=== PATIENT | male | born 1945 | race Caucasian/White ===

== ENCOUNTER 2017-10-26 17:34 | Emergency (ER) | payer MEDICARE, OTHER ==
[~2017-10-26] VITALS: Ht 190.5 cm; Wt 100.0 kg
[~2017-10-26 17:34] MED LIST: ANDROGEL1.62 %; LEVOTHYROXIN125 MCG PO; PRAVASTATIN SOD20 MG PO; TRICOR145 MG PO
[2017-10-26 18:16] LABS: HEMATOCRIT 43.8 % (39.0-50.0); HEMOGLOBIN 15.5 g/dl (14.0-18.0); IMMATURE GRANULOCYTES 1.3 % (0.0-1.0); MEAN CELL VOLUME 91.3 fL CALC (80.0-100.0); MEAN CORPUSCULAR HGB 32.3 pG CALC (26.0-32.0); MEAN CORPUSCULAR HGB CONC 35.4 g/L CALC (32.0-36.0); NEUT# 24.8 thou/uL (1.82-7.42); RED BLOOD COUNT 4.8 mill/uL (4.70-6.10); RED CELL DISTRI WIDTH 20.4 % (11.5-15.5)
[2017-10-26 18:29] LABS: ALBUMIN 4.4 g/dL (3.2-5.0); BILIRUBIN, TOTAL 1.7 mg/dL (0.0-1.4); CALCIUM 10.2 mg/dL (8.4-10.2); CREATININE 2.4 mg/dL (0.7-1.3)
[2017-10-26 18:44] LABS: INFLUENZA B NONE DETECTED (NONE DETECT)
[2017-10-26 18:46] LABS: INFLUENZA A POSITIVE (NONE DETECT)
[2017-10-26 19:56] LABS: URINE BLOOD DIPSTICK LARGE (NEGATIVE); URINE COLOR YELLOW; URINE GLUCOSE - DIPSTICK NEGATIVE (NEGATIVE); URINE KETONE NEGATIVE (NEGATIVE); URINE NITRITE - DIPSTICK NEGATIVE (Negative); URINE PROTEIN - DIPSTICK >=300 mg/dL (NEG-TRACE); URINE SPECIFIC GRAVITY >=1.030; URINE UROBILINOGEN - DIPSTICK 0.2 E.U./dL (0.2)
[2017-10-26 20:01] LABS: URINE BILIRUBIN - DIPSTICK SMALL (NEGATIVE); URINE LEUK ESTERASE SMALL (NEGATIVE)
[2017-10-26 20:02] LABS: URINE CLARITY CLOUDY
[2017-10-26 20:15] LABS: URINE RBC TNTC RBC/hpf (0-5)
[2017-10-26 20:16] LABS: URINE BACTERIA FEW hpf; URINE SQUAMOUS EPITHELIAL CELL FEW EPI/hpf (0-FEW)
[2017-10-26 21:02] VITALS: BP 97/52
== END 2017-10-26 21:03 | disposition short-term general hospital (02) ==
LOC: ED 17:34
PROVIDERS: Emergency Medicine
PROC: 0T9B70Z Drainage of Bladder with Drainage Device, Via Natural or Artificial Opening (ICD-10-PCS; principal; 2017-10-26)
DX: R55 Syncope and collapse (principal); J11.1 Influenza due to unidentified influenza virus with other respiratory manifestations; D72.829 Elevated white blood cell count, unspecified; I12.9 Hypertensive chronic kidney disease with stage 1 through stage 4 chronic kidney disease, or unspecified chronic kidney disease; N18.9 Chronic kidney disease, unspecified; R41.82 Altered mental status, unspecified; I69.354 Hemiplegia and hemiparesis following cerebral infarction affecting left non-dominant side; A41.9 Sepsis, unspecified organism; B96.20 Unspecified Escherichia coli [E. coli] as the cause of diseases classified elsewhere; R50.9 Fever, unspecified
CPT/HCPCS: J1956

== ENCOUNTER 2020-11-02 11:17 | Inpatient (IN) | payer MEDICARE, OTHER ==
[~2020-11-02] VITALS: Ht 190.5 cm; Wt 95.6 kg
[~2020-11-02 11:17] MED LIST changes: +EUTHYROX50 MCG PO; +FENOFIBRATE160 MG PO; -LEVOTHYROXIN125 MCG PO; -TRICOR145 MG PO
[2020-11-02 12:04] LABS: IMMATURE GRANULOCYTES 0.4 % (0.0-5.0); MEAN CELL VOLUME 85.9 fL CALC (80.0-100.0); MEAN CORPUSCULAR HGB 27.8 pG CALC (26.0-32.0); MEAN CORPUSCULAR HGB CONC 32.4 g/dL CAL (32.0-36.0); NEUT# 6.5 thou/uL (1.82-7.42); RED BLOOD COUNT 6.47 mill/uL (4.70-6.10); RED CELL DISTRI WIDTH 20.4 % (11.5-15.5)
[2020-11-02 12:19] LABS: ALBUMIN 4.7 g/dL (3.2-5.0); ANION GAP 22 (6-22 (CALC)); BILIRUBIN, TOTAL 1.2 mg/dL (0.0-1.4); BUN 32 mg/dL (8-23); BUN/CREATININE RATIO 16 (12-20 (CALC)); CARBON DIOXIDE 20 mmol/l (22-30); CHLORIDE 101 mmol/l (95-108); GFR 33 ML/MIN (>=60 (CALC)); GFR FOR AFR.AMER. 40 ML/MIN (>=60 (CALC)); POTASSIUM 4.3 mmol/l (3.5-5.1); SGOT/AST 39 u/l (19-48); SODIUM 139 mmol/l (137-146); TOTAL PROTEIN 8.2 g/dL (6.3-8.2)
[2020-11-02 12:22] LABS: ALKALINE PHOSPHATASE 77 u/l (38-126)
[2020-11-02 12:25] LABS: HEMATOCRIT 55.6 % (39.0-50.0)
[2020-11-02 14:04] LABS: ACT PARTIAL THROMBO TIME 27.7 SECONDS (20.0-32.5); INTERNATIONAL NORMALIZED RATIO 1.3 RATIO (0.7-1.3); PROTHROMBIN TIME 12.9 SECONDS (9.0-12.5)
[2020-11-02 14:33] LABS: URINE BLOOD DIPSTICK NEGATIVE (NEGATIVE); URINE COLOR YELLOW; URINE GLUCOSE - DIPSTICK >=1000 mg/dL (NEGATIVE); URINE KETONE 15 mg/dL (NEGATIVE); URINE LEUK ESTERASE NEGATIVE (NEGATIVE); URINE NITRITE - DIPSTICK NEGATIVE (Negative); URINE PH 5.5 (4.5-8.0); URINE PROTEIN - DIPSTICK TRACE mg/dL (NEG-TRACE); URINE SPECIFIC GRAVITY 1.015
[2020-11-02 14:38] LABS: URINE BILIRUBIN - DIPSTICK SMALL (NEGATIVE)
[2020-11-02] MEDS ORDERED: HYDROCORTISONE5 MG PO (14:42)
[2020-11-02] MEDS ORDERED: ROSUVASTATIN CA20 MG PO (14:42)
[2020-11-02] MEDS ORDERED: CALCIUM600 M1 PO (14:43)
[2020-11-02] MEDS ORDERED: MULTI VIT PO (14:43)
[2020-11-02] MEDS ORDERED: VITAMIN D1000 UNIT PO (14:44)
[2020-11-02] MEDS ORDERED: GLUCOSAMINE1500 MG PO (14:45)
[2020-11-02] MEDS ORDERED: ALLOPURINOL100 MG PO (14:47)
[2020-11-02] MEDS ORDERED: EQ OMEPRAZOLE20 MG PO (14:47)
[2020-11-02] MEDS ORDERED: NORVASC10 M1 PO (14:48)
[2020-11-02] MEDS ORDERED: CARVEDILOL3.125 MG PO (14:49)
[2020-11-02] MEDS ORDERED: ASPIRIN81 MG PO (14:49)
[2020-11-02] MEDS ORDERED: DICLOFENAC75 MG PO (14:50)
[2020-11-02 16:00] VITALS: BP 110/78
[2020-11-02 18:23] VITALS: BP 103/64
[2020-11-02 20:31] VITALS: BP 99/62
[2020-11-02 22:28] VITALS: BP 100/66
[2020-11-03] VITALS (14 sets, daily range): BP systolic 89–111; BP diastolic 57–68
[2020-11-03 06:00] LABS: IMMATURE GRANULOCYTES 0.2 % (0.0-5.0); MEAN CORPUSCULAR HGB 28.6 pG CALC (26.0-32.0); MEAN CORPUSCULAR HGB CONC 32.2 g/dL CAL (32.0-36.0); NEUT# 3.28 thou/uL (1.82-7.42); RED BLOOD COUNT 4.54 mill/uL (4.70-6.10); RED CELL DISTRI WIDTH 19.6 % (11.5-15.5)
[2020-11-03 06:03] LABS: HEMATOCRIT 40.4 % (39.0-50.0)
[2020-11-03 06:14] LABS: ALKALINE PHOSPHATASE 40 u/l (38-126); BUN 22 mg/dL (8-23); BUN/CREATININE RATIO 18 (12-20 (CALC)); CALCULATED LDLCHOLESTEROL 13 mg/dL (62-129 (CALC)); CARBON DIOXIDE 22 mmol/l (22-30); CHOLESTEROL HDL RATIO 3.3 (<4.4 (CALC)); CREATININE 1.2 mg/dL (0.7-1.3); GFR 59 ML/MIN (>=60 (CALC)); GFR FOR AFR.AMER. > 60 ML/MIN (>=60 (CALC)); HDL CHOLESTEROL 23 mg/dL (>=40); MAGNESIUM 1.7 mg/dL (1.6-2.3); SGOT/AST 23 u/l (19-48); SODIUM 143 mmol/l (137-146); TOTAL CHOLESTEROL 77 mg/dl (0-199); TOTAL TRIGLYCERIDES 199 mg/dl (30-149); VLDL CHOLESTROL 40 mg/dl (0-38 (CALC))
[2020-11-03 06:19] LABS: ALBUMIN 2.5 g/dL (3.2-5.0); ANION GAP 8 (6-22 (CALC)); BILIRUBIN, TOTAL 0.5 mg/dL (0.0-1.4); CHLORIDE 116 mmol/l (95-108); POTASSIUM 2.8 mmol/l (3.5-5.1); TOTAL PROTEIN 4.7 g/dL (6.3-8.2)
[2020-11-04 02:00] VITALS: BP 112/66
[2020-11-04 04:00] VITALS: BP 106/67
[2020-11-04 06:19] LABS: HEMATOCRIT 44.3 % (39.0-50.0); HEMOGLOBIN 13.9 g/dl (14.0-18.0); IMMATURE GRANULOCYTES 0.3 % (0.0-5.0); MEAN CELL VOLUME 87.2 fL CALC (80.0-100.0); MEAN CORPUSCULAR HGB 27.4 pG CALC (26.0-32.0); MEAN CORPUSCULAR HGB CONC 31.4 g/dL CAL (32.0-36.0); NEUT# 3.52 thou/uL (1.82-7.42); RED BLOOD COUNT 5.08 mill/uL (4.70-6.10); RED CELL DISTRI WIDTH 20.1 % (11.5-15.5)
[2020-11-04 06:26] LABS: ALKALINE PHOSPHATASE 43 u/l (38-126); ANION GAP 11 (6-22 (CALC)); BILIRUBIN, TOTAL 0.6 mg/dL (0.0-1.4); BUN 14 mg/dL (8-23); BUN/CREATININE RATIO 12 (12-20 (CALC)); CARBON DIOXIDE 22 mmol/l (22-30); CHLORIDE 113 mmol/l (95-108); CREATININE 1.2 mg/dL (0.7-1.3); GFR 59 ML/MIN (>=60 (CALC)); GFR FOR AFR.AMER. > 60 ML/MIN (>=60 (CALC)); SGOT/AST 25 u/l (19-48); SODIUM 142 mmol/l (137-146); TOTAL PROTEIN 5.3 g/dL (6.3-8.2)
[2020-11-04 06:30] LABS: POTASSIUM 3.5 mmol/l (3.5-5.1)
[2020-11-04 08:00] VITALS: BP 139/75
[2020-11-04 10:00] VITALS: BP 116/63
[2020-11-04] MEDS ORDERED: LEVEMIR100 UNIT/M SC (11:27)
[2020-11-04 12:00] VITALS: BP 114/71
[2020-11-04 14:00] VITALS: BP 106/64
== END 2020-11-04 15:22 | disposition home health service (06) | DRG 683 ==
LOC: ED 11:17 → ICU 13:59
PROVIDERS: Internal Medicine; Nurse Practitioner; Student in an Organized Health Care Education/Training Program; ADMIT Internal Medicine; ATTEND Internal Medicine
DX: N17.9 Acute kidney failure, unspecified (principal); I69.354 Hemiplegia and hemiparesis following cerebral infarction affecting left non-dominant side; E23.0 Hypopituitarism; E11.65 Type 2 diabetes mellitus with hyperglycemia; E86.0 Dehydration; E87.6 Hypokalemia; R29.810 Facial weakness; R53.1 Weakness; I12.9 Hypertensive chronic kidney disease with stage 1 through stage 4 chronic kidney disease, or unspecified chronic kidney disease; E11.22 Type 2 diabetes mellitus with diabetic chronic kidney disease; N18.9 Chronic kidney disease, unspecified; E03.9 Hypothyroidism, unspecified; M10.9 Gout, unspecified; I69.322 Dysarthria following cerebral infarction; N40.0 Benign prostatic hyperplasia without lower urinary tract symptoms; Z20.822 Contact with and (suspected) exposure to COVID-19; Z79.52 Long term (current) use of systemic steroids; Z79.82 Long term (current) use of aspirin; Z79.899 Other long term (current) drug therapy; Z88.0 Allergy status to penicillin

== ENCOUNTER 2021-12-09 06:28 | Observation (INO) | payer MEDICARE, OTHER ==
[~2021-12-09] VITALS: Ht 190.5 cm; Wt 106.0 kg
[~2021-12-09 06:28] MED LIST changes: +ALLOPURINOL100 MG PO; +ASPIRIN81 MG PO; +CALCIUM600 M1 PO; +CARVEDILOL3.125 MG PO; +DICLOFENAC75 MG PO; +EQ OMEPRAZOLE20 MG PO; +GLUCOSAMINE1500 MG PO; +HYDROCORTISONE5 MG PO; +LEVEMIR100 UNIT/M SC; +MULTI VIT PO; +NORVASC10 M1 PO; +ROSUVASTATIN CA20 MG PO; +VITAMIN D1000 UNIT PO
[2021-12-09 06:59] LABS: HEMATOCRIT 45.3 % (39.0-50.0); HEMOGLOBIN 14.4 g/dl (14.0-18.0); IMMATURE GRANULOCYTES 0.5 % (0.0-5.0); MEAN CELL VOLUME 86.8 fL CALC (80.0-100.0); MEAN CORPUSCULAR HGB 27.6 pG CALC (26.0-32.0); MEAN CORPUSCULAR HGB CONC 31.8 g/dL CAL (32.0-36.0); NEUT# 7.15 thou/uL (1.82-7.42); RED BLOOD COUNT 5.22 mill/uL (4.70-6.10); RED CELL DISTRI WIDTH 16.9 % (11.5-15.5)
--- NOTE | 2021-12-09 07:00 | NUR ---
ASSUMED CARE BY THIS RN
[2021-12-09 07:13] LABS: BILIRUBIN, TOTAL 0.8 mg/dL (0.0-1.4); CREATININE 1.9 mg/dL (0.7-1.3); MAGNESIUM 1.8 mg/dL (1.6-2.3); POTASSIUM 3.6 mmol/l (3.5-5.1)
[2021-12-09 07:16] LABS: ALBUMIN 4.1 g/dL (3.2-5.0); TOTAL PROTEIN 7.1 g/dL (6.3-8.2)
[2021-12-09 07:46] LABS: TSH, 3RD GENERATION 0.46 uIU/mL (0.47 - 4.68)
[2021-12-09 09:07] LABS: URINE BILIRUBIN - DIPSTICK NEGATIVE (NEGATIVE); URINE BLOOD DIPSTICK SMALL (NEGATIVE); URINE COLOR YELLOW; URINE GLUCOSE - DIPSTICK NEGATIVE (NEGATIVE); URINE KETONE NEGATIVE (NEGATIVE); URINE LEUK ESTERASE NEGATIVE (NEGATIVE); URINE PROTEIN - DIPSTICK 100 mg/dL (NEG-TRACE); URINE SPECIFIC GRAVITY >=1.030
[2021-12-09 09:10] LABS: URINE NITRITE - DIPSTICK NEGATIVE (Negative)
[2021-12-09 09:11] LABS: URINE RBC 0-2 RBC/hpf (0-5); URINE WBC 0-2 WBC/hpf (0-5)
--- NOTE | 2021-12-09 10:15 | NUR ---
BED BATH PROVIDED FOR PT, RICARDO AREA CLEANSED AND CLEAN BRIEF APPLIED, CLEAN CHUX PLACED UNDER PT. PT'S SKIN INTACT, NO OPEN AREAS OBSERVED. PT WITH LARGE MOLE ON LEFT MID BACK THAT IS CRACKED, ABOUT THE SIZE OF A DIME. PT ASKED THAT I BE CAREFUL AROUND THAT-HE IS UNSURE WHAT IT IS, BUT TENDER. PT NOTED TO HAVE DRIED BLOOD FROM LEFT NARE AND HE STATES NOSE BLEED OCCURRED AFTER NASAL SWAB PERFORMED. WARM BLANKET ROLLED AND PLACED BEHIND HEAD/NECK. PT GIVEN FRUIT AND COTTAGE CHEESE BREAKFAST. AT THE BEDSIDE. PT AWARE OF POC AND WAITING FOR BED IN MED/SURG. PT STABLE. WILL CONTINUE TO MONITOR.
--- NOTE | 2021-12-09 11:35 | NUR ---
DR BATISTA AT BEDSIDE
--- NOTE | 2021-12-09 12:55 | NUR ---
([id number]) PT RECEIVED 1 UNIT HUMALOG PER SS FOR BS OF 196. NS RUNNING PER ORDERS. MEAL TRAY PROVIDED AND SET UP. PT DENIES ANY FURTHER NEEDS AT THIS TIME. WILL CONTINUE TO MONITOR. PT'S AT THE BEDSIDE.
--- NOTE | 2021-12-09 14:10 | NUR ---
PT RECEIVED LEVOTHYROXINE PER ORDER AND ALSO PRN TYLENOL FOR RIGHT SHOULDER PAIN THAT HE RATES AT 6/10. PT'S VSS, SKIN PWD, BREATHING UNLABORED. PT AWARE OF CONTINUED WAIT TIME. PT'S LEFT AT THIS TIME AND TOOK ALL OF PT'S BELONGGINGS EXCEPT HIS GLASSES. PT WITH CALL LIGHT IN REACH. WILL CONTINUE TO MONITOR.
--- NOTE | 2021-12-09 14:55 | NUR ---
PT RESTING WITH EYES CLOSED, IV MAINTENANCE FLUIDS INFUSING PER ORDER. VSS. BREATHING EVEN AND UNLABORED. PT STABLE. WILL CONTINUE TO MONITOR.
--- NOTE | 2021-12-09 15:36 | NUR ---
PT REASSESSED, VSS, SLEEPING. CALL LIGHT IN REACH. WILL CONTINUE TO MONITOR.
--- NOTE | 2021-12-09 17:35 | NUR ---
MEAL TRAY TO PT AND SET UP. PT DENIES ANY OTHER NEEDS AT THIS TIME. NO INSULIN REQURED WITH MEAL, BS RESULT OF 138. WILL CONTINUE TO MONITOR.
--- NOTE | 2021-12-09 18:47 | NUR ---
SPOKE WITH PT'S VIA PHONE AND GAVE UPDATE ON PT'S CONDITION AND POC.
--- NOTE | 2021-12-09 18:50 | NUR ---
([id number]) PT ATE 80% OF MEAL, DENIES ANY NEEDS AT THIS TIME. WATCHING TV, GIVEN UPDATE ON PLAN FOR GOING TO MED/SURG IN A FEW HOURS. PT VERBALIZED UNDERSTANDING. PT'S VSS, SKIN PWD, BREATHING UNLABORED. PT STABLE, CALL LIGHT IN REACH. WILL CONTINUE TO MONITOR.
--- NOTE | 2021-12-09 19:55 | NUR ---
CALL PLACED TO MED/SURG TO GIVE REPORT, DERIK BAIRD IS UNAVAILABLE, WILL RETURN CALL.
--- NOTE | 2021-12-09 20:10 | NUR ---
CALL PLACED TO DERIK BAIRD MED/SURG, SBAR REPORT GIVEN
[2021-12-09 20:35] VITALS: BP 140/67
--- NOTE | 2021-12-09 20:35 | NUR ---
PATIENT MOVED UP TO [facility] TO ROOM 268 VIA STRETCHER. AMBULATED SELF TO BED WITH SUPERVISION. ALERT AND ORIENTED. ABLE TO MAKE NEEDS KNOWN. ORIENTED PATIENT TO ROOM. ASSESSMENT COMPLETE. VS STABLE. BSC PRESENT. NO COMPLAINTS OF PAIN OR DISCOMFORT AT THIS TIME. CALL LIGHT AND BELONGINGS WITHIN REACH.
--- NOTE | 2021-12-09 20:55 | NUR ---
(2038) PT TAKEN TO MED/SURG ROOM 268 VIA STRETCHER WITH TELE IN PLACE. PT'S PAPERWORK HANDED OFF TO DERIK BAIRD. PT ASSISTED INTO BED AND IV FLUIDS RESUMED AT 100ML/HR VIA PUMP WITH 250ML OF 1000ML REMAINING. PT IN STABLE CONDITION AT TIME OF ADMISSION.
[2021-12-09 23:48] VITALS: BP 138/68
--- NOTE | 2021-12-10 00:25 | NUR ---
PATIENT SITTING UP IN BED WATCHING TV. NO COMPLAINTS VOICED AT THIS TIME. NO SIGNS OF DISTRESS NOTED. CALL LIGHT AND BELONGINGS REMAIN IN REACH.
[2021-12-10 04:42] VITALS: BP 143/78
--- NOTE | 2021-12-10 05:00 | NUR ---
PATIENT RESTING IN BED QUIETLY. NO COMPLAINTS VOICED AT THIS TIME. NO SIGNS OF DISTRESS. CALL LIGHT AND BELONGINGS REMAIN IN REACH.
--- NOTE | 2021-12-10 05:35 | NUR ---
EMPTIED PATIENTS URINAL AND GAVE HIM WATER BOTTLES PER REQUEST.
[2021-12-10 05:59] LABS: HEMATOCRIT 41.5 % (39.0-50.0); HEMOGLOBIN 13.2 g/dl (14.0-18.0); IMMATURE GRANULOCYTES 0.4 % (0.0-5.0); MEAN CELL VOLUME 88.7 fL CALC (80.0-100.0); MEAN CORPUSCULAR HGB 28.2 pG CALC (26.0-32.0); MEAN CORPUSCULAR HGB CONC 31.8 g/dL CAL (32.0-36.0); NEUT# 5.85 thou/uL (1.82-7.42); RED BLOOD COUNT 4.68 mill/uL (4.70-6.10); RED CELL DISTRI WIDTH 17.8 % (11.5-15.5)
[2021-12-10 06:18] LABS: ALBUMIN 3.5 g/dL (3.2-5.0); BILIRUBIN, TOTAL 0.5 mg/dL (0.0-1.4); C-REACTIVE PROTEIN 5.3 mg/dL (0-0.9); CREATININE 1.4 mg/dL (0.7-1.3); MAGNESIUM 1.9 mg/dL (1.6-2.3); POTASSIUM 3.7 mmol/l (3.5-5.1); TOTAL PROTEIN 6.2 g/dL (6.3-8.2)
[2021-12-10 07:15] VITALS: BP 140/70
--- NOTE | 2021-12-10 07:15 | NUR ---
PATIENT LAYING IN BED AT THIS TIME. CENTRIFUGAL SPINNER DONE SEE INTERVENTIONS. PATIENT DEINES ANY SHORTNESS OF BREATH AT THIS TIME AND SPO2 IS 97% ON ROOM AIR. PATIENT DENIES ANY PAIN BUT DOES STATE THAT HIS RIGHT SHOULDER IS "SORE" DUE TO HIS FALLING AT HOME. TELE MONITOR IN PLACE AND BEING MONITORED BY ED. SIDERAILS ARE UP CALL LIGHT IS WITHIN REACH.
--- NOTE | 2021-12-10 07:37 | NUR ---
Patient is screened for PT and OT intervention and consults are indicated if medical agrees
[2021-12-10 10:34] VITALS: BP 141/77
--- NOTE | 2021-12-10 11:53 | NUR ---
PATIENT RESTING IN BED AT THIS TIME DENEIS ANY NEEDS AT THIS TIME TELE MONITOR IN PLACE CALL LIGHT WITHIN REACH. WILL CONTINUE TO MONITOR.
[2021-12-10 16:05] VITALS: BP 151/75
--- NOTE | 2021-12-10 16:23 | NUR ---
PATIENT RESTING IN BED AT THIS TIME DENIES ANY NEED SIDERAILS UP CALL LIGHT WIHTIN REACH. TELE MONITOR REMAINS IN PLACE BEING MONITORED BY ED.
[2021-12-10 16:30] VITALS: BP 142/68
[2021-12-10 19:00] VITALS: BP 139/76
--- NOTE | 2021-12-10 20:00 | NUR ---
PT IN BED WATCHING TV. EVEN AND UNLABORED RESPIRATIONS; CLEAR LUNG AGUILAR UPON AUSCULTATION. NON PRODUCTIVE COUGH PRESENT. TELEMETRY IN PLACE. ACTIVE BOWEL SOUNDS X4 QUADRANTS. IV SITE HEALTHY AND PATENT. SAFETY PRECAUTIONS IN PLACE. CALL LIGHT WITHIN REACH.
--- NOTE | 2021-12-10 23:30 | NUR ---
PT IN BED. PT C/O PAIN ON RIGHT SHOULDER AND BACK OF NECK 05/05. PT MEDICATED; WILL REASSESS. CALL LIGHT WITHIN REACH.
[2021-12-11] VITALS: BP 143/79
--- NOTE | 2021-12-11 00:20 | NUR ---
PT IN BED; STATES HIS PAIN IS BETTER 3/10. PT HELPED WITH PERICARE. NO DISTRESS NOTED. TELEMETRY IN PLACE. SAFETY PRECAUTIONS IN PLACE. CALL LIGHT WITHIN REACH.
[2021-12-11 04:00] VITALS: BP 159/77
--- NOTE | 2021-12-11 05:20 | NUR ---
PT C/O PAIN ON RIGHT SHOULDER AND BACK OF NECK 05/05; PT MEDICATED; WILL REASSES. PT REQUESTED FRESH WATER AND A BLANKET. TELEMETRY AND SAFETY PRECAUTIONS IN PLACE. CALL LIGHT WITHIN REACH.
[2021-12-11 06:14] LABS: HEMATOCRIT 39.8 % (39.0-50.0); HEMOGLOBIN 13.5 g/dl (14.0-18.0); MEAN CELL VOLUME 89.4 fL CALC (80.0-100.0); MEAN CORPUSCULAR HGB 30.3 pG CALC (26.0-32.0); MEAN CORPUSCULAR HGB CONC 33.9 g/dL CAL (32.0-36.0); RED BLOOD COUNT 4.45 mill/uL (4.70-6.10); RED CELL DISTRI WIDTH 19.5 % (11.5-15.5)
[2021-12-11 06:44] LABS: CREATININE 1.5 mg/dL (0.7-1.3); MAGNESIUM 1.8 mg/dL (1.6-2.3); POTASSIUM 3.5 mmol/l (3.5-5.1)
[2021-12-11 07:15] VITALS: BP 148/77
--- NOTE | 2021-12-11 07:15 | NUR ---
PATIENT LAYING IN BED AT THIS TIME. DIESEL TRUCK MECHANIC DONE SEE INTERVENTIONS PATIENT REMAINS ON ROOM AIR AND SPO2 IS 96% TELE MONITOR ON AND BEING MONITORED BY ED. PATIENT ALERT AND ORIENTED AND DENIES ANY PAIN. SIDERAILS ARE UP CALL LIGHT IS WIHTIN REACH.
[2021-12-11] MEDS ORDERED: LEVOTHYROXIN100 MCG PO (11:00)
[2021-12-11] MEDS ORDERED: ULTRAM50 M1 PO (11:01)
[2021-12-11 11:21] VITALS: BP 152/80
--- NOTE | 2021-12-11 11:40 | NUR ---
PATIENT D/C AT THIS TIME. D/C INSTRUCTIONS GONE OVER WITH VIA PHONE AND WITH PATIENT AT BEDSIDE. PATIENT AND INFORMED THAT [facility] WILL CONTACT THEM AND ARRANGE TIME WHEN THEY WILL BE COMING TO VISIT. IV REMOVED AT THIS TIME. ED CALLED SPOKE TO SCOTTY AND INFORMED PATIENT BEING REMOVED FROM TELE DUE TO D/C STATUS.
--- NOTE | 2021-12-11 11:57 | NUR ---
Discharge instructions given. Patient verbalizes understanding of same. Discharged in stable condition via Wheelchair to Home with spouse. All belongings sent with pt. PATIENT LEFT WITH HOME CARE TO FOLLOW
--- NOTE | 2021-12-11 12:02 | NUR ---
S- Pt stated he may be going home today. 0-Pt seen this am for treatment. He was resting in bed. Pt bed mobility with SBA, sit to and from stand with CGA. Ambulation x 20' in room with RW required CGA. Pt performed 2 x 10 reps of LEs in sitting. Transfers bed to commode, commode to chair with CGA. BP 152/80, HR 84 02 92%. Time spent with pt 40 min A- Pt continued to be weak. [facility] E[facility] P- Will follow per POC and progress as tolerated.
== END 2021-12-11 11:57 | disposition home health service (06) ==
LOC: ED 06:28 → ED-I 09:23 → ED 19:01 → MS2 19:02
PROVIDERS: Family Medicine; Nurse Practitioner; ADMIT Internal Medicine; ATTEND Internal Medicine
DX: U07.1 COVID-19 (principal); R53.1 Weakness; N17.9 Acute kidney failure, unspecified; M62.82 Rhabdomyolysis; M25.511 Pain in right shoulder; I12.9 Hypertensive chronic kidney disease with stage 1 through stage 4 chronic kidney disease, or unspecified chronic kidney disease; E11.22 Type 2 diabetes mellitus with diabetic chronic kidney disease; N18.9 Chronic kidney disease, unspecified; E03.9 Hypothyroidism, unspecified; E23.0 Hypopituitarism; M10.9 Gout, unspecified; Z79.4 Long term (current) use of insulin; Z86.73 Personal history of transient ischemic attack (TIA), and cerebral infarction without residual deficits; Z91.81 History of falling
CPT/HCPCS: J1650

== ENCOUNTER 2022-11-01 01:13 | Emergency (ER) | payer MEDICARE, OTHER ==
[~2022-11-01] VITALS: Ht 190.5 cm; Wt 106.0 kg
[2022-11-01] VITALS (9 sets, daily range): BP systolic 112–136; BP diastolic 68–77
[~2022-11-01 01:13] MED LIST changes: +LEVOTHYROXIN100 MCG PO; +ULTRAM50 M1 PO
[2022-11-01 02:07] LABS: BASO% 0.7 % (0-3); EOS% 2.5 % (0-8); HEMATOCRIT 44.9 % (39.0-50.0); HEMOGLOBIN 15.3 g/dl (14.0-18.0); IMMATURE GRANULOCYTES 0.8 % (0.0-5.0); MEAN CELL VOLUME 88.6 fL CALC (80.0-100.0); MEAN CORPUSCULAR HGB 30.2 pG CALC (26.0-32.0); MEAN CORPUSCULAR HGB CONC 34.1 g/dL CAL (32.0-36.0); MONO% 8.6 % (2-13); NEUT# 5.88 thou/uL (1.82-7.42); NEUT% 67.4 % (42-76); RED BLOOD COUNT 5.07 mill/uL (4.70-6.10); RED CELL DISTRI WIDTH 14.4 % (11.5-15.5)
[2022-11-01 02:11] LABS: AMYLASE 75 u/l (30-110); ANION GAP 17 (6-22 (CALC)); BUN 24 mg/dL (8-23); BUN/CREATININE RATIO 14 (12-20 (CALC)); CARBON DIOXIDE 23 mmol/l (22-30); CHLORIDE 103 mmol/l (95-108); CREATININE 1.7 mg/dL (0.7-1.3); GFR FOR AFR.AMER. 48 ML/MIN (>=60 (CALC)); GFR OTHER RACES 39 ML/MIN (>=60 (CALC)); LIPASE 221 u/l (23-300); POTASSIUM 3.6 mmol/l (3.5-5.1); SGOT/AST 58 u/l (19-48); SODIUM 139 mmol/l (137-146)
[2022-11-01 02:21] LABS: ALKALINE PHOSPHATASE 59 u/l (38-126); BILIRUBIN, TOTAL 0.8 mg/dL (0.0-1.4); TOTAL PROTEIN 8.1 g/dL (6.3-8.2)
[2022-11-01 03:33] LABS: URINE BILIRUBIN - DIPSTICK NEGATIVE (NEGATIVE); URINE BLOOD DIPSTICK TRACE-INTACT (NEGATIVE); URINE COLOR YELLOW; URINE GLUCOSE - DIPSTICK NEGATIVE (NEGATIVE); URINE KETONE TRACE mg/dL (NEGATIVE); URINE LEUK ESTERASE NEGATIVE (NEGATIVE); URINE PH 5.5 (4.5-8.0); URINE PROTEIN - DIPSTICK TRACE mg/dL (NEG-TRACE); URINE SPECIFIC GRAVITY >=1.030; URINE UROBILINOGEN - DIPSTICK 0.2 E.U./dL (0.2)
[2022-11-01 03:36] LABS: URINE NITRITE - DIPSTICK NEGATIVE (Negative)
[2022-11-01] MEDS ORDERED: ROBITUSSIN AC10 ML PO (05:26)
== END 2022-11-01 06:10 | disposition home or self-care (01) ==
LOC: ED 01:13 → ED-I 03:33 → ED 06:10
PROVIDERS: Emergency Medicine
DX: A41.9 Sepsis, unspecified organism (principal); J06.9 Acute upper respiratory infection, unspecified; E86.0 Dehydration; E11.9 Type 2 diabetes mellitus without complications; I10 Essential (primary) hypertension; M10.9 Gout, unspecified; Z79.4 Long term (current) use of insulin; Z86.73 Personal history of transient ischemic attack (TIA), and cerebral infarction without residual deficits; Z20.822 Contact with and (suspected) exposure to COVID-19
CPT/HCPCS: S0073

== ENCOUNTER 2022-11-01 08:32 | Observation (INO) | payer MEDICARE, OTHER ==
[~2022-11-01] VITALS: Ht 182.9 cm; Wt 107.0 kg
[~2022-11-01 08:32] MED LIST changes: +ROBITUSSIN AC10 ML PO
[2022-11-01 09:29] LABS: BASO% 1.2 % (0-3); EOS% 2.4 % (0-8); IMMATURE GRANULOCYTES 0.2 % (0.0-5.0); LYMPH% 19.9 % (15-41); MEAN CORPUSCULAR HGB 30.3 pG CALC (26.0-32.0); MEAN CORPUSCULAR HGB CONC 34.4 g/dL CAL (32.0-36.0); MONO% 8.1 % (2-13); NEUT# 5.87 thou/uL (1.82-7.42); NEUT% 68.2 % (42-76); RED BLOOD COUNT 4.33 mill/uL (4.70-6.10); RED CELL DISTRI WIDTH 14.7 % (11.5-15.5)
[2022-11-01 09:30] LABS: HEMATOCRIT 38.1 % (39.0-50.0); HEMOGLOBIN 13.1 g/dl (14.0-18.0)
[2022-11-01 09:45] LABS: BILIRUBIN, TOTAL 0.5 mg/dL (0.0-1.4); CREATININE 1.4 mg/dL (0.7-1.3); POTASSIUM 3.6 mmol/l (3.5-5.1); TOTAL PROTEIN 6.5 g/dL (6.3-8.2)
[2022-11-01 09:51] LABS: URINE BILIRUBIN - DIPSTICK NEGATIVE (NEGATIVE); URINE BLOOD DIPSTICK NEGATIVE (NEGATIVE); URINE COLOR YELLOW; URINE GLUCOSE - DIPSTICK NEGATIVE (NEGATIVE); URINE KETONE NEGATIVE (NEGATIVE); URINE LEUK ESTERASE NEGATIVE (NEGATIVE); URINE PROTEIN - DIPSTICK NEGATIVE (NEG-TRACE); URINE UROBILINOGEN - DIPSTICK 0.2 E.U./dL (0.2)
[2022-11-01 09:52] LABS: URINE NITRITE - DIPSTICK NEGATIVE (Negative)
[2022-11-01 15:33] VITALS: BP 129/69
[2022-11-01 15:38] VITALS: BP 129/69
[2022-11-01 19:29] VITALS: BP 137/71
[2022-11-01 23:31] VITALS: BP 137/75
[2022-11-02 03:55] VITALS: BP 140/90
[2022-11-02 04:00] VITALS: BP 140/90
[2022-11-02 07:02] LABS: ALBUMIN 3.7 g/dL (3.2-5.0); ALKALINE PHOSPHATASE 49 u/l (38-126); ANION GAP 12 (6-22 (CALC)); BUN 14 mg/dL (8-23); BUN/CREATININE RATIO 12 (12-20 (CALC)); CARBON DIOXIDE 23 mmol/l (22-30); CHLORIDE 106 mmol/l (95-108); CREATININE 1.2 mg/dL (0.7-1.3); GFR FOR AFR.AMER. > 60 ML/MIN (>=60 (CALC)); GFR OTHER RACES 59 ML/MIN (>=60 (CALC)); MAGNESIUM 1.7 mg/dL (1.6-2.3); POTASSIUM 3.9 mmol/l (3.5-5.1); SGOT/AST 81 u/l (19-48); SODIUM 137 mmol/l (137-146)
[2022-11-02 10:12] VITALS: BP 139/77
[2022-11-02 10:44] VITALS: BP 117/69
[2022-11-02 18:53] VITALS: BP 107/64
[2022-11-02 23:56] VITALS: BP 135/77
[2022-11-03 03:57] VITALS: BP 140/75
[2022-11-03 07:12] VITALS: BP 135/75
[2022-11-03 11:56] VITALS: BP 138/76
[2022-11-03 13:24] LABS: BASO% 0.6 % (0-3); EOS% 4.5 % (0-8); HEMATOCRIT 38.8 % (39.0-50.0); HEMOGLOBIN 13.2 g/dl (14.0-18.0); IMMATURE GRANULOCYTES 0.2 % (0.0-5.0); LYMPH% 18.1 % (15-41); MEAN CELL VOLUME 89.6 fL CALC (80.0-100.0); MEAN CORPUSCULAR HGB 30.5 pG CALC (26.0-32.0); MONO% 8.1 % (2-13); NEUT# 4.31 thou/uL (1.82-7.42); NEUT% 68.5 % (42-76); RED BLOOD COUNT 4.33 mill/uL (4.70-6.10); RED CELL DISTRI WIDTH 14.5 % (11.5-15.5)
[2022-11-03 13:31] LABS: ALBUMIN 4.1 g/dL (3.2-5.0); ALKALINE PHOSPHATASE 50 u/l (38-126); ANION GAP 12 (6-22 (CALC)); BUN 12 mg/dL (8-23); BUN/CREATININE RATIO 11 (12-20 (CALC)); CARBON DIOXIDE 22 mmol/l (22-30); CHLORIDE 108 mmol/l (95-108); CREATININE 1.2 mg/dL (0.7-1.3); GFR FOR AFR.AMER. > 60 ML/MIN (>=60 (CALC)); GFR OTHER RACES 59 ML/MIN (>=60 (CALC)); POTASSIUM 4.1 mmol/l (3.5-5.1); SGOT/AST 64 u/l (19-48); SODIUM 137 mmol/l (137-146); TOTAL PROTEIN 6.7 g/dL (6.3-8.2)
[2022-11-03 13:33] LABS: BILIRUBIN, TOTAL 0.5 mg/dL (0.0-1.4)
[2022-11-03 15:14] VITALS: BP 117/73
[2022-11-03 18:53] VITALS: BP 132/69
[2022-11-04 00:37] VITALS: BP 143/78
[2022-11-04 04:44] VITALS: BP 150/79
[2022-11-04 06:04] LABS: EOS% 7.6 % (0-8); HEMATOCRIT 38.8 % (39.0-50.0); HEMOGLOBIN 13.4 g/dl (14.0-18.0); IMMATURE GRANULOCYTES 0.4 % (0.0-5.0); LYMPH% 31.9 % (15-41); MEAN CORPUSCULAR HGB 30.7 pG CALC (26.0-32.0); MEAN CORPUSCULAR HGB CONC 34.5 g/dL CAL (32.0-36.0); MONO% 8.6 % (2-13); NEUT# 2.47 thou/uL (1.82-7.42); NEUT% 50.5 % (42-76); RED BLOOD COUNT 4.36 mill/uL (4.70-6.10); RED CELL DISTRI WIDTH 14.4 % (11.5-15.5)
[2022-11-04 06:22] VITALS: BP 135/71
[2022-11-04 06:48] LABS: ALKALINE PHOSPHATASE 53 u/l (38-126); ANION GAP 12 (6-22 (CALC)); BILIRUBIN, TOTAL 0.5 mg/dL (0.0-1.4); BUN 12 mg/dL (8-23); BUN/CREATININE RATIO 11 (12-20 (CALC)); CARBON DIOXIDE 24 mmol/l (22-30); CHLORIDE 107 mmol/l (95-108); CREATININE 1.1 mg/dL (0.7-1.3); GFR FOR AFR.AMER. > 60 ML/MIN (>=60 (CALC)); GFR OTHER RACES > 60 ML/MIN (>=60 (CALC)); POTASSIUM 4.1 mmol/l (3.5-5.1); SGOT/AST 56 u/l (19-48); SODIUM 139 mmol/l (137-146); TOTAL PROTEIN 6.7 g/dL (6.3-8.2)
[2022-11-04 10:11] VITALS: BP 129/69
[2022-11-04] MEDS ORDERED: VIBRAMYCIN100 M2 PO (14:32)
[2022-11-04 14:41] VITALS: BP 125/63
[2022-11-04 15:25] VITALS: BP 125/63
== END 2022-11-04 16:05 | disposition home health service (06) ==
LOC: ED 08:32 → ED-I 10:15 → ED 12:13 → MS2 12:14
PROVIDERS: Family Medicine; Internal Medicine; ADMIT Internal Medicine; ATTEND Internal Medicine
DX: R62.7 Adult failure to thrive (principal); R53.1 Weakness; E86.0 Dehydration; M62.82 Rhabdomyolysis; N17.9 Acute kidney failure, unspecified; I12.9 Hypertensive chronic kidney disease with stage 1 through stage 4 chronic kidney disease, or unspecified chronic kidney disease; E11.22 Type 2 diabetes mellitus with diabetic chronic kidney disease; N18.9 Chronic kidney disease, unspecified; E23.0 Hypopituitarism; M10.9 Gout, unspecified; Z86.73 Personal history of transient ischemic attack (TIA), and cerebral infarction without residual deficits; Z91.81 History of falling; Z79.4 Long term (current) use of insulin; Z20.822 Contact with and (suspected) exposure to COVID-19; A41.9 Sepsis, unspecified organism; J06.9 Acute upper respiratory infection, unspecified; E11.9 Type 2 diabetes mellitus without complications; I10 Essential (primary) hypertension
CPT/HCPCS: J1650; S0073

== ENCOUNTER 2022-12-02 12:06 | Observation (INO) | payer MEDICARE, OTHER ==
[~2022-12-02] VITALS: Ht 193 cm; Wt 97.0 kg
[2022-12-02] VITALS (32 sets, daily range): BP systolic 96–129; BP diastolic 58–76
[~2022-12-02 12:06] MED LIST changes: +VIBRAMYCIN100 M2 PO
--- NOTE | 2022-12-02 12:06 | NUR ---
PATIENT TO ROOM 1 VIA EMS BEDSIDE TRIAGE COMPELTED
[2022-12-02 13:15] LABS: BASO% 0.4 % (0-3); EOS% 1.3 % (0-8); HEMATOCRIT 43.8 % (39.0-50.0); HEMOGLOBIN 14.6 g/dl (14.0-18.0); IMMATURE GRANULOCYTES 0.2 % (0.0-5.0); LYMPH% 19.9 % (15-41); MEAN CELL VOLUME 88.7 fL CALC (80.0-100.0); MEAN CORPUSCULAR HGB 29.6 pG CALC (26.0-32.0); MEAN CORPUSCULAR HGB CONC 33.3 g/dL CAL (32.0-36.0); MONO% 8.8 % (2-13); NEUT# 6.9 thou/uL (1.82-7.42); NEUT% 69.4 % (42-76); RED BLOOD COUNT 4.94 mill/uL (4.70-6.10); RED CELL DISTRI WIDTH 13.9 % (11.5-15.5)
[2022-12-02 13:29] LABS: ALBUMIN 4.6 g/dL (3.2-5.0); CREATININE 1.5 mg/dL (0.7-1.3); POTASSIUM 3.4 mmol/l (3.5-5.1); TOTAL PROTEIN 7.7 g/dL (6.3-8.2)
[2022-12-02 13:31] LABS: BILIRUBIN, TOTAL 1.1 mg/dL (0.2-1.3)
[2022-12-02] MEDS ORDERED: METFORMIN HCL500 M1 PO (14:06)
[2022-12-02] MEDS ORDERED: JARDIANCE25 MG PO (14:06)
[2022-12-02] MEDS ORDERED: LEVOTHYROXIN125 MCG PO (14:06)
[2022-12-02] MEDS ORDERED: AMLODIPINE BESYL5 MG PO (14:07)
[2022-12-02 16:20] LABS: URINE BLOOD DIPSTICK NEGATIVE (NEGATIVE); URINE COLOR YELLOW; URINE GLUCOSE - DIPSTICK >=1000 mg/dL (NEGATIVE); URINE KETONE TRACE mg/dL (NEGATIVE); URINE LEUK ESTERASE NEGATIVE (NEGATIVE); URINE PH 5.5 (4.5-8.0); URINE PROTEIN - DIPSTICK 30 mg/dL (NEG-TRACE); URINE SPECIFIC GRAVITY >=1.030; URINE UROBILINOGEN - DIPSTICK 0.2 E.U./dL (0.2)
[2022-12-02 16:26] LABS: URINE BILIRUBIN - DIPSTICK SMALL (NEGATIVE); URINE NITRITE - DIPSTICK NEGATIVE (Negative); URINE RBC 0-2 RBC/hpf (0-5); URINE WBC 0-2 WBC/hpf (0-5)
--- NOTE | 2022-12-02 18:41 | NUR ---
PT HAS BEEN MEIDCATED PER ORDER PT SPOUSE HAS BEEN UPDATED. PT AWARE OF ADMIT.
--- NOTE | 2022-12-02 19:20 | NUR ---
PT RESTING. NAD. IV ANTIBIOTICS INFUSING. VSS. AWAITING BED ASSIGNMENT
--- NOTE | 2022-12-02 20:00 | NUR ---
REPORT CALLED TO
--- NOTE | 2022-12-02 20:30 | NUR ---
TO FLOOR VIA [employer] MIXER ON MONITOR PACK. BELONGINGS LIST COMPLETED.
--- NOTE | 2022-12-02 21:16 | NUR ---
pt had a glucose of 161 @2049. nurse arnulfo notified @2054.
--- NOTE | 2022-12-02 22:00 | NUR ---
PATIENT ADMITTED FROM ER VIA STRETCHER WITH ER STAFF IN ATTENDANCE. PATIENT ASSIST TO THE BED-UNSTEADY ON HIS FEET AND STATES THAT HE HAS HAD RECENT FALLS. PATIENT REPOSITIONED IN BED. AWAKE ALERT AND ORIENTEDX3. PATIENT ADMITTED FOR PNEUMONIA AND JOVI. 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 PATIENT AMB WITH WALKER OR QUAD CANE AT HOME. WET BREIF REMOVED. STATES THAT HE WEARS THEM AT HOME FOR URINE INCONT. STATES THAT HIS LAST BM WAS SAT 2/4. IV SITE TO LEFT UPPER FOREARM INTACT AND HEALTHY WITH NS PATENT AND INFUSING AT 100CC/HR. TELE MONITOR IN PLACE. ORIENTED PATIENT TO ROOM AND SURROUNDINGS. INSTRUCTED ON USE OF NURSE CALL LIGHT SYSTEM AND TV REMOTE. SAFETY PRECAUTIONS RFEINFORCED. CALL LIGHT IN REACH. WILL CONT TO MONITOR.
--- NOTE | 2022-12-02 22:52 | NUR ---
PATIENT RESTING IN BED-ATE ANLY A COUPLE OF BITE OF DINNER-REFUSING LEVEMIR AND HUMALOG AT THIS TIME DUE TO POOR APPETITE. TAKING ONLY SIPS OF GINGERALE AT THIS TIME. IVF NS PATENT AND INFUSING VIA LEFT FOREARM SITE. SITE REMAINS HEALTHY. MALE PUREWICK IN PLACE AND DRAINING YELLOW URINE. PATIENT WEARS BREIFS AT HOME FOR INCONT. TELE MONITOR IN PLACE. AFETY PRECAUTIONS REINFORCED. CALL LIGHT IN REACH. WILL CONT TO MONITOR
--- NOTE | 2022-12-03 00:30 | NUR ---
PATIENT RESTING IN BED AT THIS TIME WITH EYES CLOSED. RESPS ARE EVEN AND UNLABORED. TELE MONITOR IN PLACE. CALL LIGHT IN REACH. WILL CONT TO MONITOR.
[2022-12-03 04:18] VITALS: BP 139/78
--- NOTE | 2022-12-03 04:47 | NUR ---
PATIENT RESTING IN BED WITH EYES CLOSED. RESPS ARE EVEN AND UNLABORED. GTELE MONITOR IN PLACE. IVF NS PATENT AND INFUSING VIA LAC SITE AT 100CC/HR. PURE WICK IN PLACE. CALL LIGHT IN REACH. WILL CONT TO MONITOR.
[2022-12-03 05:43] LABS: HEMATOCRIT 39.9 % (39.0-50.0); HEMOGLOBIN 13.3 g/dl (14.0-18.0); MEAN CELL VOLUME 91.7 fL CALC (80.0-100.0); MEAN CORPUSCULAR HGB 30.6 pG CALC (26.0-32.0); MEAN CORPUSCULAR HGB CONC 33.3 g/dL CAL (32.0-36.0); RED BLOOD COUNT 4.35 mill/uL (4.70-6.10)
[2022-12-03 06:17] LABS: ALBUMIN 4.2 g/dL (3.2-5.0); ALKALINE PHOSPHATASE 47 u/l (38-126); ANION GAP 14 (6-22 (CALC)); BUN 20 mg/dL (8-23); BUN/CREATININE RATIO 16 (12-20 (CALC)); CARBON DIOXIDE 26 mmol/l (22-30); CHLORIDE 103 mmol/l (95-108); CREATININE 1.3 mg/dL (0.7-1.3); GFR FOR AFR.AMER. > 60 ML/MIN (>=60 (CALC)); GFR OTHER RACES 54 ML/MIN (>=60 (CALC)); POTASSIUM 3.7 mmol/l (3.5-5.1); SGOT/AST 35 u/l (19-48); SODIUM 139 mmol/l (137-146); TOTAL PROTEIN 7.2 g/dL (6.3-8.2)
[2022-12-03 06:25] VITALS: BP 127/68
--- NOTE | 2022-12-03 08:00 | NUR ---
REPORT RECEIVED FROM PAINTER TUMBLING BARREL - PT SEEN IN BED WITH EYES CLOSED - NO S/S DISTRESS ON ROOM AIR - CALL LIGHT IN REACH
--- NOTE | 2022-12-03 08:44 | NUR ---
The patient is screened for PT intervention and would benefit from PT consult if medical agrees.
[2022-12-03 10:47] VITALS: BP 117/64
--- NOTE | 2022-12-03 11:57 | NUR ---
Pt resting in bed with bedside - denies any pain or needs at this time - no s/s distress - call light in reach
[2022-12-03 15:08] VITALS: BP 128/68
--- NOTE | 2022-12-03 15:55 | NUR ---
Pt resting in bed with bedside - denies any needs at this time - no s/s distress - call light in reach
[2022-12-03 18:42] VITALS: BP 109/70
--- NOTE | 2022-12-03 20:45 | NUR ---
PATIENT SITTING U P IN BED-AWAKE ALERT AND ORIENTEDX3. PATIENT DID NOT ANY OF HIS DINNER TONIGHT. STATES THT HE IS NOT HUNGRY. GLUCOSE METER TONIGHT WAS 107-REFUSED LEVEMIR BECAUSE HE IS NOT EATING AND HIS GLUCOSE IS NORMAL. PUREWICK IN PLACE-DRAINED 550CC OF BILL URINE AT THIS TIME. IVF NS PATENT AND INFUSING VIA LEFT FOREARM AT KVO RATE. TELE MONITOR IN PLACE WITH LAST READING SR-86. LUNGS ARE CLEAR. ABD IS SOFT. STATES THAT HE IS PASSING FLATUS NO BM TODAY. PATIENT APPEARS DOWN-NOT THRILLED ABOUT GOING TO REHAB. ENCOURAGEMENT OFFERED. SAFETY PRECAUIONS REINFORCED. CALL LIGHT IN REACH. WILL CONT TO MONITOR.
--- NOTE | 2022-12-04 | NUR ---
PATIENT RESTING IN BED-POSITIONED ON LEFT SIDE WITH EYES CLOSED. RESPS ARE EVEN AND UNLABORED. PUREWICK IN PLACE AND CNT TO DRAIN BILL URINE. IVF PATENT AND INFUSING VIA LEFT FOREARM AT KVO RATE. SITE REMAINS HEALTHY. TELE MONITOR IN PLACE-LAST READING SR-85. CALL LIGHT IN REACH. WILL CONT TO MONITOR.
[2022-12-04 00:11] VITALS: BP 133/76
--- NOTE | 2022-12-04 04:00 | NUR ---
PATIENT RESTING IN BED WITH EYES CLOSED. RESPS ARE EVEN AND UNLABORED. PUFREWICK IN PLACE AND CONT TO DRAIN BILL URINE. TELE MONITOR IN PLACE AND CONT TO READ SR-80'S. IVF KVO VIA LEFT FOREARM SITE. CALL LIGHT IN REACH.WILL CONT TO MONITOR.
[2022-12-04 04:20] VITALS: BP 131/71
[2022-12-04 05:33] LABS: HEMOGLOBIN 13.1 g/dl (14.0-18.0); MEAN CELL VOLUME 90.3 fL CALC (80.0-100.0); MEAN CORPUSCULAR HGB 29.6 pG CALC (26.0-32.0); MEAN CORPUSCULAR HGB CONC 32.8 g/dL CAL (32.0-36.0); RED BLOOD COUNT 4.43 mill/uL (4.70-6.10); RED CELL DISTRI WIDTH 13.7 % (11.5-15.5)
[2022-12-04 05:51] LABS: ALKALINE PHOSPHATASE 56 u/l (38-126); ANION GAP 12 (6-22 (CALC)); BILIRUBIN, TOTAL 0.7 mg/dL (0.2-1.3); BUN 13 mg/dL (8-23); BUN/CREATININE RATIO 10 (12-20 (CALC)); CARBON DIOXIDE 25 mmol/l (22-30); CHLORIDE 102 mmol/l (95-108); CREATININE 1.3 mg/dL (0.7-1.3); GFR FOR AFR.AMER. > 60 ML/MIN (>=60 (CALC)); GFR OTHER RACES 54 ML/MIN (>=60 (CALC)); MAGNESIUM 1.9 mg/dL (1.6-2.3); POTASSIUM 3.8 mmol/l (3.5-5.1); SGOT/AST 42 u/l (19-48); SODIUM 135 mmol/l (137-146)
[2022-12-04 06:21] VITALS: BP 139/71
--- NOTE | 2022-12-04 08:00 | NUR ---
PT SITTING UP IN BED AWAKE AND ALERT, C/O RIGHT SIDED SHOULDER PAIN AT 7 ON PAIN SCALE, PT MEDICATED WITH PRN MEDICATION. PT HAS TELE LEADS ATTACHED. IV SITE TO THE RAC, CLEAN AND INTACT, NS @10 ML/HR RUNNING. PT HAS PUREWICK IN PLACE DRTAINING CLEAR, YELLOW URINE. PT HAS CALL LIGHT WITHIN REACH AND SAFETY MEASURES IN PLACE.
--- NOTE | 2022-12-04 09:00 | NUR ---
PT IN BED WITH HOB UP, PHYSICAL THERAPY IN . PT STATES SHOULDER PAIN HAS IMPROVED TO A 3 ON PAIN SCALE. WILL CONTINUE TO MONITOR FOR PAIN. CALL LIGHT WITHIN REACH.
[2022-12-04 10:28] VITALS: BP 106/62
[2022-12-04] MEDS ORDERED: VIBRAMYCIN100 M2 PO (10:34)
--- NOTE | 2022-12-04 12:05 | NUR ---
PT SITTING IN CHAIR, AWAKE AND ALERT. PT HAS NO C/O PAIN AT THIS TIME. IV SITE TO LAC WITH NS@ 10 ML/HR. TELE ON WITH LEADS ATTACHED. PUREWICK ON AND DARK,YELLOW URINE DARIANING. PT HAS CALL LIGHT WITHIN REACH, ALL SAFETY MEASURES IN PLACE.
--- NOTE | 2022-12-04 15:34 | NUR ---
Discharge instructions given. Patient verbalizes understanding of same. Discharged in stable condition [facility] Wheel[facility] to [facility] with [facility]. All belongings sent with pt.
== END 2022-12-04 15:29 ==
LOC: ED 12:06 → ED-I 17:13 → ED 17:35 → MS2 17:36
PROVIDERS: Family Medicine; ADMIT Internal Medicine; ATTEND Internal Medicine
DX: N17.9 Acute kidney failure, unspecified (principal); J18.9 Pneumonia, unspecified organism; E86.0 Dehydration; E11.22 Type 2 diabetes mellitus with diabetic chronic kidney disease; I12.9 Hypertensive chronic kidney disease with stage 1 through stage 4 chronic kidney disease, or unspecified chronic kidney disease; N18.9 Chronic kidney disease, unspecified; E23.0 Hypopituitarism; E03.9 Hypothyroidism, unspecified; M10.9 Gout, unspecified; Z86.73 Personal history of transient ischemic attack (TIA), and cerebral infarction without residual deficits; Z79.4 Long term (current) use of insulin; Z79.84 Long term (current) use of oral hypoglycemic drugs; Z20.822 Contact with and (suspected) exposure to COVID-19
CPT/HCPCS: J1650

== ENCOUNTER 2024-10-11 14:48 | Observation (INO) | payer MEDICARE, OTHER ==
[2024-10-11] VITALS (33 sets, daily range): BP systolic 100–138; BP diastolic 57–84
[~2024-10-11] VITALS: Ht 193 cm; Wt 76.0 kg
[~2024-10-11 14:48] MED LIST changes: +AMLODIPINE BESYL5 MG PO; +JARDIANCE25 MG PO; +LEVOTHYROXIN125 MCG PO; +METFORMIN HCL500 M1 PO
--- NOTE | 2024-10-11 14:55 | NUR ---
PT TO ER ROOM VIA EMS.
--- NOTE | 2024-10-11 15:00 | NUR ---
PT RESTING IN BED. PT REFUSED TO GET INTO A HOSPITAL GOWN .
[2024-10-11 15:33] LABS: BASO% 0.3 % (0-3); EOS% 0.4 % (0-8); HEMATOCRIT 43.8 % (39.0-50.0); HEMOGLOBIN 13.3 g/dl (14.0-18.0); IMMATURE GRANULOCYTES 0.4 % (0.0-5.0); MEAN CELL VOLUME 82.5 fL CALC (80.0-100.0); MEAN CORPUSCULAR HGB CONC 30.4 g/dL CAL (32.0-36.0); NEUT# 7.94 thou/uL (1.82-7.42); NEUT% 88.9 % (42-76); RED BLOOD COUNT 5.31 mill/uL (4.70-6.10); RED CELL DISTRI WIDTH 16.7 % (11.5-15.5)
[2024-10-11 15:34] LABS: URINE BILIRUBIN - DIPSTICK Negative (NEGATIVE); URINE BLOOD DIPSTICK Trace-intact (NEGATIVE); URINE GLUCOSE - DIPSTICK >=1000 mg/dL (NEGATIVE); URINE KETONE Negative (NEGATIVE); URINE LEUK ESTERASE Negative (NEGATIVE); URINE NITRITE - DIPSTICK Negative (Negative); URINE PH 6.5 (4.5-8.0); URINE PROTEIN - DIPSTICK Negative (NEG-TRACE); URINE SPECIFIC GRAVITY 1.015; URINE UROBILINOGEN - DIPSTICK 0.2 E.U./dL (0.2)
[2024-10-11 15:43] LABS: URINE COLOR Yellow
[2024-10-11 15:59] LABS: ALBUMIN 4.2 g/dL (3.2-5.0); ALKALINE PHOSPHATASE 47 u/l (38-126); ANION GAP 17 (6-22 (CALC)); BUN 11 mg/dL (8-23); BUN/CREATININE RATIO 10 (12-20 (CALC)); CARBON DIOXIDE 22 mmol/l (22-30); CHLORIDE 105 mmol/l (95-108); CREATININE 1.1 mg/dL (0.7-1.3); ESTIMATED GFR 69 ML/MIN (>=90 (CALC)); POTASSIUM 4.2 mmol/l (3.5-5.1); SODIUM 139 mmol/l (137-146); TOTAL PROTEIN 6.5 g/dL (6.3-8.2)
[2024-10-11 16:00] LABS: SGOT/AST 75 u/l (19-48)
--- NOTE | 2024-10-11 16:30 | NUR ---
PT RESTING IN BED, EYES CLOSED. VSS. AT BEDSIDE.
[2024-10-11] MEDS ORDERED: SODIUM CHLORIDE 0.9% 1,000 ML IV ONE (16:40)
[2024-10-11] MEDS ORDERED: AZITHROMYCIN 500 MG in SODIUM CHLORIDE 0.9% 250 ML IV ONE ×2 (16:40→18:05)
[2024-10-11] MEDS ORDERED: SODIUM CHLORIDE 0.9% 250 ML IV ONE (17:09)
[2024-10-11] MEDS ORDERED: HYDROCORT10 MG PO (17:13)
--- NOTE | 2024-10-11 17:22 | NUR ---
PT RESTING IN BED. VSS. NO DISTRES SNOTED. AT BEDSIDE.
[2024-10-11] MEDS ORDERED: AZITHROMYCIN 500 MG/VIAL SDV IV ONE (18:10)
--- NOTE | 2024-10-11 18:31 | NUR ---
ATTEMPT TO GET PATIENT OUT OF BED. PT STATES "I AM TO WEAK" PIGMENT MAKING SUPERVISOR IS MADE AWARE.
[2024-10-11] MEDS ORDERED: MAGNESIUM HYDROXIDE 30 ML UDC PO PRN (19:00)
[2024-10-11] MEDS ORDERED: SODIUM CHLORIDE 0.9% 1,000 ML IV PRN (19:00)
[2024-10-11] MEDS ORDERED: ACETAMINOPHEN 325 MG/TAB PO PRN (19:00)
--- NOTE | 2024-10-11 19:00 | NUR ---
RECEIVED REPORT FROM DERIK YEN AT THIS TIME, PT UPDATED ON CONTINUOUS PLAN OF CARE, ABX RUNNING, PT VOICES UNDERSTANDING, AWAITING RM ASSIGNMENT FOR ADMISSION.
--- NOTE | 2024-10-11 20:30 | NUR ---
PT RESTING WITH NO COMPLAINTS AT THIS TIME, NOTED WITH MODERATE INCONTINENCE IN BRIEF OF YELLOW URINE, PT UPDATED ON CONTINUOUS PLAN OF CARE WITH NO FURTHER QUESTIONS OR CONCERNS AT THSI TIME, PT AWAITING RM ASSIGNMENT AT THIS TIME.
[2024-10-11] MEDS ORDERED: INSULIN LISPRO 100 UNITS/ML ML SC SCH (21:00)
[2024-10-11] MEDS ORDERED: ENOXAPARIN SODIUM 40 MG/0.4 ML SYR SC SCH (21:00)
--- NOTE | 2024-10-11 22:00 | NUR ---
PT VSS, NOTIFIED PT WILL BE ER HOLD AT THIS TIME, PT AWAITING TRANSFER TO MS2 BED FOR COMFORT AND ADMISSION MEDS. WILL CONTINUE TO MONITOR.
--- NOTE | 2024-10-11 23:00 | NUR ---
PT TRANSPORTED TO ER RM #15 VIA W/C, AMB WITH STEADY GAIT, PT CHANGED TO GOWN, PT ON CONTINUOUS MONITORING, PT NOTED WITH 800 ML OF YELLOW URINE OUTPUT, PT REMAINS A&OX4, NAD NOTED, PT VSS, PT IS PLACED ER HOLD DUE TO CAPACITY MET UPSTAIRS AT THIS TIME. PT AWARE OF PLAN OF CARE, PT PLACED IN MS2 BED FOR COMFORT.
[2024-10-12] VITALS (7 sets, daily range): BP systolic 107–132; BP diastolic 56–77
--- NOTE | 2024-10-12 00:20 | NUR ---
PT MEDICATED PER ORDERS AT THIS TIME, PT UPDATED ON CONTINUOUS PLAN OF CARE WITH NO FURTHER QUESTIONS OR CONCERNS AT THIS TIME, PT VOICES APPRECIATION OF CARE, WILL CONTINUE TO MONITOR.
--- NOTE | 2024-10-12 01:30 | NUR ---
PT VOICES RELIEF OF PAIN, STATES 1/10 PAIN, TOLERABLE AT THIS TIME, PT EASILY AROUSABLE, NAD NOTED, WILL CONTINUE TO MONITOR, IVF RUNNING.
--- NOTE | 2024-10-12 02:15 | NUR ---
PT RESTING, EASILY AROUSABLE, NAD NOTED, VSS, WILL CONTINUE TO MONITOR, IVF RUNNING PER ORDERS.
--- NOTE | 2024-10-12 04:45 | NUR ---
PT EASILY AROUSABLE, NAD NOTED, PT VOICES APPRECIATION AND UNDERSTANDING OF CONTINUED CARE AND JANINA. PT RESTING TO (L) SIDE, WILL CONTINUE TO MONITOR.
--- NOTE | 2024-10-12 05:50 | NUR ---
PT REMAINS EASILY AROUSABLE AT THIS TIME, NAD NOTED, VSS, IVF RUNNING, PT VOICES APPRCIATION OF CARE, WILL CONTINUE TO MONITOR.
[2024-10-12] MEDS ORDERED: LEVOTHYROXINE SODIUM 125 MCG/TAB PO SCH (06:00)
--- NOTE | 2024-10-12 07:00 | NUR ---
REPORT CALLED TO DERIK ALEXANDER AT THIS TIME IN ICU.
--- NOTE | 2024-10-12 07:42 | NUR ---
DR BATISTA AT BEDSIDE FOR EVAL.
--- NOTE | 2024-10-12 07:44 | NUR ---
DR BATISTA AT BEDSIDE
--- NOTE | 2024-10-12 07:47 | NUR ---
PATIENT READIED FOR TRANSPORT TO ICU AN OVERFLOW
--- NOTE | 2024-10-12 07:55 | NUR ---
PATIENT TO FLOOR ON HOSPITAL BED
[2024-10-12] MEDS ORDERED: ASPIRIN 81 MG/TAB PO SCH (09:00)
[2024-10-12] MEDS ORDERED: ALLOPURINOL 100 MG/TAB PO SCH (09:00)
[2024-10-12] MEDS ORDERED: PANTOPRAZOLE SODIUM Sesquihydr 40 MG/TAB PO SCH (09:00)
[2024-10-12] MEDS ORDERED: amLODIPine BESYLATE 5 MG/TAB PO SCH (09:00)
[2024-10-12] MEDS ORDERED: HYDROCORTISONE 10 MG TABLET PO SCH (11:00)
--- NOTE | 2024-10-12 13:15 | NUR ---
REPORT RECIEVED FROM [facility]. PATIENT AXO X3. S1S2 NOTED, HR IRREGULAR. UPPER LUNGS CLEAR, LOWER DIMINISHED. ABDOMEN SOFT, NON DISTENDED, NON TENDER, WITH ACTIVE BOWEL SOUNDS. UPPER PULSES STRONG, LOWER WEAK. SKIN WDI. CALL LIGHT IN REACH.
--- NOTE | 2024-10-12 16:00 | NUR ---
PATIENT SITTING UP IN BED WATCHING TV. ALL NEEDS MET. CALL LIGHT IN REACH.
[2024-10-12] MEDS ORDERED: AZITHROMYCIN 500 MG in SODIUM CHLORIDE 0.9% 500 ML IV SCH (18:00)
[2024-10-12] MEDS ORDERED: AZITHROMYCIN 500 MG in SODIUM CHLORIDE 0.9% 250 ML IV SCH (18:00)
[2024-10-12] MEDS ORDERED: guaiFENesin-CODEINE 200-20 MG/10 ML UDC PO PRN (18:25)
[2024-10-13] VITALS (7 sets, daily range): BP systolic 101–151; BP diastolic 60–77
--- NOTE | 2024-10-13 04:40 | NUR ---
ROUNDED ON PATIENT AND PATIENT WAS THROWING UP AT A 15 DEGREE ANGLE. PLACED PATIENT AT A 30 DEGREE ANGLE AND PT STATED THAT HE IS NAUSEOUS. PT STATED "I HAVE FELT LIKE THIS BEFORE IN THE PAST". CALLED DR. NOLEN AND REPORTED THE EVENT; CXR PORTABLE STAT AND ZOFRAN ORDERED.
[2024-10-13] MEDS ORDERED: ONDANSETRON 4 MG/TAB ODT PO PRN (04:55)
[2024-10-13 07:51] LABS: ALBUMIN 4.1 g/dL (3.2-5.0); BILIRUBIN, TOTAL 0.9 mg/dL (0.2-1.3); CREATININE 1.1 mg/dL (0.7-1.3); MAGNESIUM 2.1 mg/dL (1.6-2.3); POTASSIUM 4.6 mmol/l (3.5-5.1); TOTAL PROTEIN 6.7 g/dL (6.3-8.2)
--- NOTE | 2024-10-13 08:00 | NUR ---
Patient lying in bed with eyes closed.
[2024-10-13 08:03] LABS: HEMATOCRIT 45.2 % (39.0-50.0); HEMOGLOBIN 13.2 g/dl (14.0-18.0); MEAN CELL VOLUME 84.6 fL CALC (80.0-100.0); MEAN CORPUSCULAR HGB 24.7 pG CALC (26.0-32.0); MEAN CORPUSCULAR HGB CONC 29.2 g/dL CAL (32.0-36.0); RED BLOOD COUNT 5.34 mill/uL (4.70-6.10); RED CELL DISTRI WIDTH 16.8 % (11.5-15.5)
--- NOTE | 2024-10-13 08:45 | NUR ---
Patient sitting in bed with head leaning forward. Patient answering questions and using profanity. Patient not opening his eyes. Patient warm to touch. Vital signs stable. Dr. Casiano notified of patient temperature of 103 temporal. Orders received.
[2024-10-13] MEDS ORDERED: ACETAMINOPHEN 650 MG SUP RE PRN (09:05)
--- NOTE | 2024-10-13 12:45 | NUR ---
Patient given full bed bath. Patient with full linen change. Male purewick applied to patient for incontinence.
--- NOTE | 2024-10-13 13:00 | NUR ---
Patient sitting in bed with eyes closed. Patient responding appropriately and following commands.
[2024-10-13] MEDS ORDERED: DEXAMETHASONE SOD. PHOSPHATE 10 MG/ML VIAL IV SCH (14:00)
[2024-10-13] MEDS ORDERED: OSELTAMIVIR PHOSPHATE 75 MG/TAB CAP PO SCH (14:00)
--- NOTE | 2024-10-13 15:18 | NUR ---
Report called to Darlin Garcia LPN, 2nd floor MS.
--- NOTE | 2024-10-13 15:50 | NUR ---
PT ARRIVED TO THE UNIT VIA BED TRANSPORTED BY NURSE AND CONTRACT SHELTERED WORKSHOP SUPERVISOR, PT IS DROWSY, PT AROUSES WITH VERBAL STIMULI, PT ORIENTED X3, PUPILS PERRL, NORMAL S1 S2 HEART SOUNDS, TELE MONITOR IN PLACE, ABD DISTENDED AND SOFT WITH ACTIVE BOWEL SOUNDS, STRONG RADIAL PULSES, WEAK PEDAL PULSES, O2 APPLIED VIA NC @ 2L, PT ORIENTED TO THE ROOM AND CALL CABALLERO SYSTEM, PT VERBALIZED UNDERSTANDING, SAFETY MEASURES INTRODUCED, CALL CABALLERO WITHIN REACH
--- NOTE | 2024-10-13 20:00 | NUR ---
RECEIVED REPORT FROM NURSE JORDAN, PATIENT DROWSY, AROUSES TO VERBAL STIMULI, PATIENT ALERT ORIENTED, DENIES PAIN, HOOKED ON TELEMETRY, PATIENT ON O2 @ 2LPM VIA NC, SPO2 @ 94% BREATHING UNLABORED, PUREWICK IN PLACED DRAINING BILL COLORED URINE, OFFERED PUDDING HAD 3 SPOONFULL, PATINET ON ISOLATION FOR FLU, CALL LIGHT IN REACHED BED ALARM IN PLACED.
[2024-10-14] VITALS (9 sets, daily range): BP systolic 100–124; BP diastolic 59–73
--- NOTE | 2024-10-14 00:31 | NUR ---
PATIENT RESTING IN BED, EYES CLOSED, REMAINS ON ON O2 @ M2LLPM VIA NC, TELE IN PLACED.CALL LIGHT IN REACHED.
--- NOTE | 2024-10-14 04:29 | NUR ---
PATIENT RESTING IN BED, MORE ALERT, C/O HEADCHE PRN TYLENOL GIVEN, PATIENT REMAINS ON ISOLATION, STILL ON 2LPM O2, CALL LIGHT WITHIN REACHED.
[2024-10-14 05:35] LABS: HEMATOCRIT 40.8 % (39.0-50.0); HEMOGLOBIN 12.5 g/dl (14.0-18.0); MEAN CORPUSCULAR HGB 27.9 pG CALC (26.0-32.0); MEAN CORPUSCULAR HGB CONC 30.6 g/dL CAL (32.0-36.0); RED BLOOD COUNT 4.48 mill/uL (4.70-6.10); RED CELL DISTRI WIDTH 19.6 % (11.5-15.5)
[2024-10-14 05:45] LABS: ALBUMIN 3.5 g/dL (3.2-5.0); BILIRUBIN, TOTAL 0.8 mg/dL (0.2-1.3); MAGNESIUM 2.1 mg/dL (1.6-2.3); MEAN CELL VOLUME 91.1 fL CALC (80.0-100.0); POTASSIUM 4.7 mmol/l (3.5-5.1); TOTAL PROTEIN 6.3 g/dL (6.3-8.2)
--- NOTE | 2024-10-14 07:00 | NUR ---
PT LAYING IN BED RESTING WITH EYES CLOSED, AROUSES EASILY TO VERBAL STIMULI, PUPILS PERRL, NORMAL S1 S2 HEART SOUNDS, TELE MONITOR IN PLACE, RESP. EVEN AND UNLABORED, LUNG SOUNDS ARE COARSE, ABD DISTENDED AND SOFT WITH ACTIVE BOWEL SOUNDS, STRONG RADIAL PULSES, WEAK PEDAL PULSES, 20G RAC IV WITH FLUIDS INFUSING AT PRESCRIBED RATE, SAFETY MEASURES REINFORCED, CALL CABALLERO WITHIN REACH
--- NOTE | 2024-10-14 12:00 | NUR ---
PT SITTING UP IN THE RECLINER EATING LUNCH AND WATCHING TV, NO S/S OF DISTRESS, PT VERBALIZES NO NEEDS AT THIS TIME, CALL CABALLERO WITH REACH
--- NOTE | 2024-10-14 16:00 | NUR ---
PT SITTING UP IN THE CHAIR RESTING WITH EYES CLOSED, NO S/S OF DISTRESS, CALL CABALLERO WITHIN REACH
--- NOTE | 2024-10-14 19:40 | NUR ---
PATIENT OBSERVED SITTING UP IN RECLINER. ALERT AND ORIENTED. ABLE TO MAKE NEEDS KNOWN. ASSESSMENT COMPLETE. NO COMPLAINTS OF PAIN. NON PRODUCTIVE COUGH OBSERVED. NO DISTRESS NOTED. REMAINS ON ISOLATION FOR THE FLU. PATIENT DENIES NEEDING ANYTHING AT THIS TIME. CALL CABALLERO AND BELONGINGS REMAIN IN REACH.
--- NOTE | 2024-10-14 23:35 | NUR ---
PATIENT REMAINS RESTING IN BED. NO COMPLAINTS VOICED. DENIES NEEDING ANYTHING AT THIS TIME. BED REMAINS IN LOW POSITION. CALL CABALLERO IN REACH.
[2024-10-15 03:29] VITALS: BP 124/64
--- NOTE | 2024-10-15 03:46 | NUR ---
PATIENT REMAINS RESTING IN BED. NO COMPLAINTS VOICED. DENIES NEEDING ANYTHING AT THIS TIME. BED REMAINS IN LOW POSITION. CALL CABALLERO IN REACH.
[2024-10-15 05:15] LABS: BASO% 0.1 % (0-3); HEMATOCRIT 35.5 % (39.0-50.0); HEMOGLOBIN 10.9 g/dl (14.0-18.0); IMMATURE GRANULOCYTES 0.3 % (0.0-5.0); LYMPH% 5.3 % (15-41); MEAN CORPUSCULAR HGB 25.6 pG CALC (26.0-32.0); MEAN CORPUSCULAR HGB CONC 30.7 g/dL CAL (32.0-36.0); MONO% 3.5 % (2-13); NEUT# 13.65 thou/uL (1.82-7.42); NEUT% 90.8 % (42-76); RED BLOOD COUNT 4.25 mill/uL (4.70-6.10); RED CELL DISTRI WIDTH 16.6 % (11.5-15.5)
[2024-10-15 05:19] LABS: ALBUMIN 3.3 g/dL (3.2-5.0); CREATININE 0.9 mg/dL (0.7-1.3); MAGNESIUM 1.9 mg/dL (1.6-2.3); POTASSIUM 4.3 mmol/l (3.5-5.1); TOTAL PROTEIN 5.6 g/dL (6.3-8.2)
[2024-10-15 05:22] LABS: BILIRUBIN, TOTAL 0.4 mg/dL (0.2-1.3)
[2024-10-15 05:25] LABS: MEAN CELL VOLUME 83.5 fL CALC (80.0-100.0)
[2024-10-15 08:31] VITALS: BP 149/85
[2024-10-15] MEDS ORDERED: TAM75CAP PO (09:30)
--- NOTE | 2024-10-15 12:56 | NUR ---
Patient alert and oritend but forgetful at bedside, discharge instructions discussed with patient ansd , no further questions at this time. Peripheral IV removed without complications.
--- NOTE | 2024-10-21 10:40 | NUR ---
Discharge follow up call completed 10/21/24. Patient states he is much improved since discharge. Patient has been taking prescribed medication as directed. Patient has a follow up appointment with his PCP today. No needs or concerns verbalized by patient at this time.
== END 2024-10-15 12:42 | disposition home health service (06) ==
LOC: ED 14:48 → ED-I 16:00 → ED 18:27 → ICU 18:28 → ED-I 18:28 → MS2 18:28 → ED-I 10-12 03:58 → ICU 10-12 06:57 → MS2 10-13 15:47
PROVIDERS: Nurse Practitioner; Nurse Practitioner Family; ADMIT Internal Medicine; ATTEND Internal Medicine
DX: J10.1 Influenza due to other identified influenza virus with other respiratory manifestations (principal); I12.9 Hypertensive chronic kidney disease with stage 1 through stage 4 chronic kidney disease, or unspecified chronic kidney disease; E11.22 Type 2 diabetes mellitus with diabetic chronic kidney disease; N18.9 Chronic kidney disease, unspecified; E23.0 Hypopituitarism; E03.8 Other specified hypothyroidism; Z86.73 Personal history of transient ischemic attack (TIA), and cerebral infarction without residual deficits; Z74.2 Need for assistance at home and no other household member able to render care; Z20.822 Contact with and (suspected) exposure to COVID-19
CPT/HCPCS: G0378; J0456; J0696; J1100; J1650; J1815